=== PATIENT | female | born 1940 | race Caucasian/White ===

== ENCOUNTER → 2017-02-11 | Day surgery (SDC) | payer MEDICARE, BC ==
--- NOTE | 2017-02-03 12:47 | MH ---
cc: NETO SANTOYO DATE OF SERVICE: 02/03/2017 DATE OF ADMISSION: 02/11/2017 INDICATIONS Postmenopausal spotting and known endometrial polyps on indexes. HISTORY OF PRESENT CONDITION: The patient is a very pleasant 76-year-old white female para 4 with intact pelvis who has recently been having postmenopausal spotting intermittently with occasional cramping, an index was preformed in the office which did show several polyps of significance, an endometrial biopsy was done that did not show any sign of hyperplasia. She is very concerned about any type of procedure that would require recovery because she is very busy with her family, and so we have decided to do a MyoSure and polyp removal upstairs in same day surgery. Her general health is quite good. She has mild hypertension. She takes hormone replacement therapy. ALLERGIES LEVAQUIN PENICILLIN SULFA CHRONIC ILLNESSES: None. SOCIAL HISTORY: She does not smoke, drink or use illicit drugs. FAMILY HISTORY: Family history is noncontributory. MEDICATIONS Her medications are 1. Amlodipine 5 mg / almost. 2. Iron 40 mg one daily by Stock 5 mg daily. 3. Duloxetine 30 mg a day. 4. Hydrochlorothiazide 25 mg a day. PAST SURGICAL HISTORY: 1. She has had an appendectomy 2. cholecystectomy 3. tonsillectomy as an adult PHYSICAL EXAMINATION: VITAL SIGNS: On physical; she is 148 pounds, 5 feet 8 inches. Her blood pressure is 138/72. NECK: She has no thyroid enlargement. LUNGS: Lungs are clear to auscultation. HEART: The heart rate and rhythm are regular. There is no arrhythmia. BREAST: The breast exam was deferred. ABDOMEN: The abdomen is benign. GYNECOLOGIC: Perineum is reasonably estrogenized. Cervix is multiparous. Uterus is anteverted mobile. Ovaries were not palpable. RECTUM: Guaiac was negative. IMPRESSION/PLAN: Confirmed endometrial polyps on , we have discussed MyoSure versus laparoscopically assisted vaginal hysterectomy, bilateral salpingo-oophorectomy and at this point she desires to do the former so that she can continue caring for her . The risks, benefits, expectations, failure rates were discussed in detail. She has signed consents and is scheduled for the 5th. MD BRISEIDA Palacios/marcus /11:39 AM /11:48 AM
[~2017-02-11] MED LIST: ACEB200C; ESTR1.25; FEXO180; LACTATED RINGER'S 1000 ML INJ 1,000 ML ONE; ONDANSETRON HCL 4 MG/2 ML VIAL IV PUSH ONE; PROPOFOL 200 MG/20 ML AMP IV ONE; TELM1TAB56; VYTO10TA32; ceFAZolin INJ 1,000 MG VIAL ONE; oxyCODONE/ACETAMINOPHEN 5 MG/325 MG TAB ONE
--- NOTE | 2017-02-13 13:29 | MP ---
cc: GAYATHRI SANTOYO DATE OF SURGERY: 02/11/2017 PREOPERATIVE DIAGNOSIS: known intrauterine polyps and possible submucosal causal fibroids causing postmenopausal bleeding. POSTOPERATIVE DIAGNOSIS: known intrauterine polyps and possible submucosal causal fibroids causing postmenopausal bleeding. OPERATION: Myosure Hysteroscopy with endocervical curettage also. SURGEON: Gayathri Santoyo MD. BUSINESS REPORTING DEVELOPER: [employer] staff. ANESTHESIA: General. FINDINGS: Examination under anesthesia revealed a uterus that was anteverted and mobile. Deviated slightly to the right. There were alot of small polyps at the endocervical os which were curetted out and sent separately. She was dilated and sounded to 8 cm's and then the myosure scope was placed. There was a fair number of polyps on the patients right side and an area that appeared to be a small fibroid, submucosal and the lower left. These were easily excised using the Myosure in a classic fashion and tissue was sent to pathology. There was no evidence of iatrogenic injury and she tolerated the procedure well. PROCEDURE: The patient was identified as Adia Allen her permit was checked, she was taken to the operating room and placed under general anesthesia, she received one gram of Ancef. She was prepped and draped in the usual sterile fashion. A time out was preformed, her bladder was emptied, her cervix was grasped with tenaculum and a cervical curetting was obtained, she was sounded to 8 she was gently dilated to allow the passage of the myosure scope. Systematic evaluation was done, we could easily see both tubal orifices and the pathology at hand, this was easily removed. Did not appear all that worrisome and the instrumentation was removed. She was placed in the dorsal supine position, awakened and taken to the Recovery Room in stable condition. Cc . ATTENDING PHYSICIAN An operative note on a Moses the neck shruthi K old and EDC and 98. DATA INDICATIONS FOR PROCEDURE February 11. Postoperative diagnosis is known intrauterine polyps and possible submucosal causal fibroids causing postmenopausal bleeding. POSTOPERATIVE DIAGNOSIS Same PROCEDURE MyoSure and hysteroscopy with endocervical curettage also SURGEON . BUSINESS REPORTING DEVELOPER [employer] staff ANESTHESIA General FINDINGS Examination under anesthesia revealed the uterus that was anteverted and mobile deviated slightly to the right there was a lot of small polyps at the endocervical loss which with her curetted out and sent separately she was dilated to a month and sounded to 8 cm and then the MyoSure scope placed. There is a fair number polyps on the patient's right side and an area that appeared to be a mild small fibroid submucosal on the lower left uteri easily excised using the MyoSure in a classic fashion and tissue sent to pathology. There was no evidence of the iatrogenic injury and she tolerated the procedure well. PROCEDURE The patient was identified as Jasmyn Gold Neck: Neck her permit was checked. She was taken to the operating room, placed under general anesthesia. She received 1 gram Ancef. She was prepped and draped in usual sterile fashion. A time-out was performed. Her bladder was emptied. The cervix was grasped with tenaculum. Endocervical curetting obtained. She was sounded to aid she was gently dilated to allow the passage of the MyoSure scope systematic evaluation was done we could easily see both ureter tubal orifices and the pathology and this was easily removed did not appear old a worrisome then the instrumentation was removed. She was placed in dorsal supine position, awoken and taken to the recovery room in stable condition. This time. Completing OPERATIVE NOTE On [facility] thank you MD BRISEIDA Palacios/marcus /3:55 PM /1:14 PM
== END | disposition home or self-care (01) ==
LOC: ESDC 06:28
PROVIDERS: ATTEND Obstetrics & Gynecology
DX: N95.0 Postmenopausal bleeding (principal); N84.1 Polyp of cervix uteri
CPT/HCPCS: 00952; 58558; 88305; J0690; J2405; J3010; J7120